=== PATIENT | female | born 1995 | race Caucasian/White ===

== ENCOUNTER 2016-08-21 20:01 | Emergency (ER) | payer OTHER ==
--- NOTE | 2016-08-21 21:43 | ED ORDER SUMMARY ---
..... Patient: BEBE HERNANDEZ OrderSheet [facility] VisitID: [id number] [place] [address] 21y, F Registration Date/Time: 08/21/2016 ORDER SHEET Weight: 64.4 kg (stated) Allergies: No Known Drug Allergy GENERAL ORDERS: CBC w Diff Urgent (20:55 08/21/2016 HBivens A.R.N.P.) (Ack 21:01 NHouse ER Tech1) (21:07 NHouse ER Tech1) BMP Urgent (20:55 08/21/2016 HBivens A.R.N.P.) (Ack 21:01 NHouse ER Tech1) (21:07 NHouse ER Tech1) MEDICATION ORDERS: Protonix PO 40 mg (Do not crush or chew, NOW) (21:17 08/21/2016 HBivens A.R.N.P.) (21:26 DDean R.N.) K-Dur PO 20 meq (Do not crush or chew, NOW) (21:37 08/21/2016 HBivens A.R.N.P.) (21:42 DDean R.N.) Augmentin PO 875 mg (NOW) (22:36 08/21/2016 DDean R.N. verbal order read back to HBivens A.R.N.P.) (22:41 DDean R.N.) IV FLUIDS: Toradol IV 30 mg (NOW) (21:50 08/21/2016 HBivens A.R.N.P.) (Ack 21:51 DDean R.N.) (22:39 DDean R.N.) IV NS : initial bolus none -, then 1000 mL/hr for X1 (NOW) (22:36 08/21/2016 DDean R.N. per protocol) (22:38 DDean R.N.) ORDER SHEET NOTES: [Electronically signed by Mary Kaur.R.N.P. (22:50 08/21/2016)] [Electronically signed by Jennifer Okeefe R.N. (23:12 08/21/2016)] [Electronically locked/signed by Jennifer Okeefe R.N. (23:12 08/21/2016)]
--- NOTE | 2016-08-21 21:43 | ED NURSING NOTES ---
Clinical Report - Nurses [facility] [address] [place] [address] 08/21/2016 20:03 Patient: BEBE HERNANDEZ TRIAGE Triage time 2014. Acuity: LEVEL 3. Chief Complaint: FEVER, COUGH, SORE THROAT and BODY ACHES. --20:26 Jennifer Okeefe R.N. 20:17 08/21/16. BP: 103/68. HR: 150. RR: 22. O2 saturation: 100%. Temp: 103.2 F (oral). Pain level now: 05/30. --20:26 Jennifer Okeefe R.N. Weight: 64.4 kg stated. Height/Length: 68 inches Per Patient. BMI: 21.6. --20:17 Jennifer Okeefe R.N. Medications OTC cough meds . --23:11 Jennifer Okeefe R.N. None. --23:11 Jennifer Okeefe R.N. chloroseptic spray for throat . --23:12 Jennifer Okeefe R.N. Allergies No Known Drug Allergy. --20:21 Jennifer Okeefe R.N. History Arrived by private vehicle. Historian: patient. Accompanied by friend. No primary care physician. Onset. (has had x 1-2 weeks, worse last 3 days). She has had chills, fatigue, a headache, abdominal pain and diarrhea. ( also having leg cramps, having cough with "off white to bloody" sputum). No vomiting. PAST MEDICAL HX: Negative. Last normal menstrual period- 2 weeks. SURGERY HX: No history of previous surgery. SOCIAL HX: Heavy tobacco smoker (cigarette)- less than 1 pack per day. Never smoker. Occasional alcohol use. History of drug use: marijuana. No infectious disease exposure. --20:26 Jennifer Okeefe R.N. PROBLEMS: no known problems. ADDITIONAL SURGERIES: no known surgeries. Interventions ID band on patient. To treatment room. --20:26 Jennifer Okeefe R.N. PHYSICAL ASSESSMENT 20:15. Ambulatory to room. Patient gowned. GENERAL / NEURO / PSYCH: Alert. Oriented X 4. Appears in pain and anxious. RESPIRATORY: Respirations not labored. Cough. CVS: Pulses within normal limits. GI / : The patient has had nausea and diarrhea. Emesis noted. SKIN: Skin is dry. Hot skin. --20:27 Jennifer Okeefe R.N. NURSING PROGRESS NOTES 20:15. Patient gowned. Head of bed elevated. Reassurance given. Patient identifiers checked. Call light placed in reach. Side rails up. Bed placed in lowest position. Patient ready for evaluation- chart flagged. --20:27 Jennifer Okeefe R.N. 20:30 08/21/2016 Site #1 started via IV in the left antecubital space with an 20g angiocath, with aseptic technique and good blood return; one attempt. Blood drawn: rainbow set. Labeled in the presence of the patient and sent to the lab. Saline lock flushed with 10 mL saline. --22:38 Jennifer Okeefe R.N. 20:30 08/21/2016 Started bag #1 1000 mL IV Fluids IV NS (Saline); at 1000 mL/hr over 1 hour(s) via site #1 via IV pump. --22:38 Jennifer Okeefe R.N. 21:21 08/21/2016 Protonix (Pantoprazole Sodium) PO Tablets 40 mg given. Allergies verified and confirmed 5 rights. --21:26 Jennifer Okeefe R.N. 21:25 08/21/2016 Toradol IVP 30 mg given over 1 minute(s) via site #1. IV patency established. IV site checked: no pain, redness, or swelling. IV flushed thoroughly pre- and post-medication administration. IVP given by RN. --22:39 Jennifer Okeefe R.N. 21:42 08/21/2016 K-DUR (Potassium Chloride Tricia ER) PO Tablets 20 meq given. Allergies verified and confirmed 5 rights. --21:42 Jennifer Okeefe R.N. 21:50 08/21/2016 Site #1 removed upon discharge. Bandaid applied. --22:40 Jennifer Okeefe R.N. 21:50 08/21/2016 IV Fluids IV NS Discontinued: bag #1 infused upon discharge. Total amount infused: 1000 mL. IV patency established. IV site checked: no pain, redness, or swelling. IV flushed thoroughly. --22:40 Jennifer Okeefe R.N. 21:52 08/21/2016 Augmentin (Amoxicillin-Pot Clavulanate) PO Tablets 875 mg given. --22:41 Jennifer Okeefe R.N. 20:30 IV started, blood drawn and sent to lab. --22:47 Jennifer Okeefe R.N. 21:15. ( Pt c/o and pain, asking for pain meds "for burning" ERPA notified, meds ordered and given). --22:49 Jennifer Okeefe R.N. 21:30. ( pt given po fluids, able to keep down.). --23:06 Jennifer Okeefe R.N. 21:15 08/21/16. BP: 110/58. HR: 114. RR: 18. O2 saturation: 98% on room air. Temp: 101.9 F. Pain level now: 03/30. --23:09 Jennifer Okeefe R.N. 21:45. ( pt given po crackers with antibiotic. deo well, denies nausea). --23:10 Jennifer Okeefe R.N. DISPOSITION / DISCHARGE 22:00. Condition at departure: improved and stable. No learning barriers present. Discharge instructions provided and reviewed with the patient and family. Reviewed medication(s) (nasalcort, augmentin, motrin). Patient and family verbalized understanding. Written instructions provided in Lithuanian. The patient was discharged home and accompanied by family. She left the Emergency Department ambulatory and via private vehicle. Family member driving. --22:44 Jennifer Okeefe R.N. 22:00 08/21/16. BP: 103/54. HR: 110. RR: 18. O2 saturation: 97%. Temp: 101.9 F. Pain level now 10. --22:44 Jennifer Okeefe R.N. Locked/Released at 08/21/2016 23:12 by Jennifer Okeefe R.N.
--- NOTE | 2016-08-21 21:43 | ED CLINICAL REPORT ---
Clinical Report - Physicians/Mid Levels [facility] [address] [place] [address] 08/21/2016 20:03 Patient: BEBE HERNANDEZ Time Seen: 2044; initial patient contact, initial documentation, patient care assumed. Arrived- By private vehicle. Historian- patient. HISTORY OF PRESENT ILLNESS Chief Complaint: COUGH, SORE THROAT, SINUS PAIN, FEVER, CHILLS, MUSCLE ACHES and "FLU". This started about 1 weeks ago and is still present. The illness is described as moderate. The patient has had thin, white sputum, a cough, a sore throat, nasal congestion and sinus pressure. She has had sinus drainage, fever, chills, muscle aches and a nasal discharge. No difficulty breathing. Additional history - No known contact with a sick individual. No recent travel. Similar symptoms previously: None. Recent medical care: Not recently seen/assessed. REVIEW OF SYSTEMS The patient has had a mild, pressure-like frontal and facial headache. No nausea or vomiting. She has had diarrhea (had diarrhea about a week ago, none today or yesterday). Denies current . All systems otherwise negative, except as recorded above. PAST HISTORY Negative. SOCIAL HISTORY Heavy tobacco smoker. Occasional alcohol use. History of occasional drug use: marijuana. Not exposed to second-hand smoke at home. No recent travel. Is a local resident. FAMILY HISTORY Negative. ADDITIONAL NOTES The nursing notes have been reviewed with agreement regarding the chief complaint, HPI, ROS, PMH and patient medications and allergies. PHYSICAL EXAM Vital Signs: 08/21/2016 20:17 BP: 103/68. HR: 150. RR: 22. O2 saturation: 100%. Temp: 103.2 F. Pain level now: 1010. Have been reviewed as abnormal and appear to be correct. Blood pressure normal. Tachycardic. Respiratory rate normal. Febrile. Oxygen saturation normal. Appearance: Alert. No acute distress. Head: Tenderness present to percussion/palpation of the sinuses: moderate right and left frontal tenderness, maxillary tenderness, ethmoid tenderness. Eyes: Pupils equal, round and reactive to light. Eyes normal inspection. ENT: Ears normal. Nose abnormal. Pharynx normal. Uvula midline. Neck: Normal inspection. Neck supple. CVS: Normal heart rate and rhythm. Heart sounds normal. Pulses normal. Respiratory: No respiratory distress. Breath sounds normal. Abdomen: Soft and nontender. No organomegaly. Back: Normal inspection. Skin: Skin warm and dry. Normal skin color. No rash. Normal skin turgor. Extremities: Extremities exhibit normal ROM. No lower extremity edema. Neuro: Oriented X 3. No motor deficit. No sensory deficit. LABS, X-RAYS, AND EKG Laboratory Tests: CBC w Diff: (GERSON: 08/21/2016 20:35) ( MsgRcvd 08/21/2016 21:32) Final results Test Result Flag Units (Reference) WHITE BLOOD COUNT 8.0 K/uL (4.5-11.5) RED BLOOD COUNT 4.73 M/uL (4.00-5.20) HEMOGLOBIN 12.3 gm/dL (12.0-16.0) HEMATOCRIT 37.7 % (36.0-46.0) MEAN CELL VOLUME 80 fL (80-100) MEAN CORPUSCULAR HGB 26 pg (26-34) MEAN CORPUSCULAR HGB CONC 33 g/dL (31-37) RED CELL DISTRIBUTION WIDTH 13.8 % (11.6-14.8) PLATELET COUNT 180 K/uL (150-400) NEUTROPHIL % 68.9 % (50-75) LYMPH % 17.7 L % (25-40) MONO % 13.1 % (3-14) EOSINOPHIL % 0 % (0-4) BASOPHIL % 0.3 % (0-2) BMP: (GERSON: 08/21/2016 20:35) ( MsgRcvd 08/21/2016 21:34) Final results Test Result Flag Units (Reference) GLUCOSE 98 mg/dL (70-110) BUN 10 mg/dL (7-18) CREATININE 0.8 mg/dL (0.6-1.3) Estimated GFR >60 mL/min Estimated GFR- >60 mL/min Note: Persistent reduction over 3 months in eGFR<60 mL/min/1.73 m2 defines CKD. Patients with eGFR values>=60 mL/min/1.73 m2 may also have CKD if evidence ofpersistent proteinuria. Additional information may be foundat www.kidney.org. SODIUM 139 mmol/L (136-145) POTASSIUM 3.2 L mmol/L (3.5-5.1) CHLORIDE 100 mmol/L (98-107) CARBON DIOXIDE 25 mmol/L (21-32) CALCIUM 8.5 mg/dL (8.5-10.1) . PROGRESS AND PROCEDURES Course of Care: nurse starting iv and blood work prior to me seeing pt. Patient counseled in person regarding the patient's stable condition, test results and diagnosis. 21:37. Differential Diagnosis: Other possible considerations: flu, sinusitis, uri, bronchitis, pneumonia, viral illness. Above considerations are based on history, physical exam and laboratory data. Differential diagnosis was discussed with patient. Disposition: Discharged home in good and improved condition (21:43). Condition: good and stable. CLINICAL IMPRESSION Acute maxillary, ethmoidal and frontal sinusitis INSTRUCTIONS Alternate Tylenol (Acetaminophen) and Motrin (Ibuprofen) for fever, temperature greater than 101 degrees orally. Take according to label instructions. Do not work for two days. Drink plenty of fluids for the next 24 hours until better. Warnings: GENERAL WARNINGS: Return or contact your physician immediately if your condition worsens or changes unexpectedly, if not improving as expected, or if other problems arise. Specifically return if problem worsens. Prescription Medications: Nasacort nasal spray: 2 sprays in each nostril once daily as needed for allergies. Dispense one (1) unit. No refills. Substitution is permissible. Augmentin 875 mg: take 1 tablet orally every 12 hours for 10 days. No refill. Motrin 600 mg tablets: take 1 tablet orally every 6 hours as needed for pain or fever. Dispense thirty (30). No refill. Follow-up: Follow up with your doctor in about three days even if well. Call for an appointment. Summary of care provided to patient. Understanding of the discharge instructions verbalized by patient. (Electronically signed by Mary Kaur A.R.N.P. 08/21/2016 22:50)
--- NOTE | 2016-08-21 21:43 | ED ORDER SUMMARY ---
..... Patient: BEBE HERNANDEZ OrderSheet [facility] VisitID: [id number] [place] [address] 21y, F Registration Date/Time: 08/21/2016 ORDER SHEET Weight: 64.4 kg (stated) Allergies: No Known Drug Allergy GENERAL ORDERS: CBC w Diff Urgent (20:55 08/21/2016 HBivens A.R.N.P.) (Ack 21:01 NHouse ER Tech1) (21:07 NHouse ER Tech1) BMP Urgent (20:55 08/21/2016 HBivens A.R.N.P.) (Ack 21:01 NHouse ER Tech1) (21:07 NHouse ER Tech1) MEDICATION ORDERS: Protonix PO 40 mg (Do not crush or chew, NOW) (21:17 08/21/2016 HBivens A.R.N.P.) (21:26 DDean R.N.) K-Dur PO 20 meq (Do not crush or chew, NOW) (21:37 08/21/2016 HBivens A.R.N.P.) (21:42 DDean R.N.) Augmentin PO 875 mg (NOW) (22:36 08/21/2016 DDean R.N. verbal order read back to HBivens A.R.N.P.) (22:41 DDean R.N.) IV FLUIDS: Toradol IV 30 mg (NOW) (21:50 08/21/2016 HBivens A.R.N.P.) (Ack 21:51 DDean R.N.) (22:39 DDean R.N.) IV NS : initial bolus none -, then 1000 mL/hr for X1 (NOW) (22:36 08/21/2016 DDean R.N. per protocol) (22:38 DDean R.N.) ORDER SHEET NOTES: [Electronically signed by Mary Kaur.R.N.P. (22:50 08/21/2016)] [Electronically signed by Jennifer Okeefe R.N. (23:12 08/21/2016)] [Electronically locked/signed by Jennifer Okeefe R.N. (23:12 08/21/2016)]
--- NOTE | 2016-08-21 23:12 | ED MAR SUMMARY ---
..... Medication Administration Record [facility] [address] [place] [address] Patient: BEBE HERNANDEZ Visit ID: [id number] 21y, F Weight: 64.4 kg Height/Length: 68 in BMI: 21.6 ALLERGIES: No Known Drug Allergy Start 20:30 08/21/2016 Jennifer Okeefe R.N., Stop 21:50 08/21/2016 Jennifer Okeefe R.N. Medication Administered: IV NS (SALINE), Dose: IV Fluids over 1 hour(s), Rate: 1000 mL/hr, Dispensed: 1000 mL bag, Site: #1 left AC. Medication Ordered: IV NS : initial bolus none -, then 1000 mL/hr for X1 (NOW). Given 21:21 08/21/2016 Jennifer Okeefe R.N. Medication Administered: PROTONIX [PO] (PANTOPRAZOLE SODIUM), Dose: 40 mg Tablets PO. Medication Ordered: Protonix PO 40 mg (Do not crush or chew, NOW). Given 21:25 08/21/2016 Jennifer Okeefe R.N. Medication Administered: TORADOL [IVP], Dose: 30 mg IVP over 1 minute(s), Site: #1 left AC. Medication Ordered: Toradol IV 30 mg (NOW). Given 21:42 08/21/2016 Jennifer Okeefe R.N. Medication Administered: K-DUR [PO] (POTASSIUM CHLORIDE JAMES ER), Dose: 20 meq Tablets PO. Medication Ordered: K-Dur PO 20 meq (Do not crush or chew, NOW). Given 21:52 08/21/2016 Jennifer Okeefe R.N. Medication Administered: AUGMENTIN [PO] (AMOXICILLIN-POT CLAVULANATE), Dose: 875 mg Tablets PO. Medication Ordered: Augmentin PO 875 mg (NOW).
--- NOTE | 2016-08-21 23:12 | ED MED RECONCILIATION SUMMARY ---
Patient: BEBE HERNANDEZ Medication Reconciliation Report [facility] VisitID: [id number] [place] [address] 21y, F Registration Date/Time: 08/21/2016 Weight: 64.4 kg Height/Length: 68 in. BMI: 21.6 ALLERGIES: No Known Drug Allergy The patient's Home Medications are listed below: THE FOLLOWING MEDICATIONS NEED TO BE RECONCILED: chloroseptic spray for throat OTC cough meds The source(s) of the original Home Medication information: Not obtained. The following Medications were given to the patient in the Emergency Department: Protonix [PO] PO 40 mg, administered: 08/21/2016 9:21:00 PM K-DUR [PO] PO 20 meq, administered: 08/21/2016 9:42:00 PM IV NS IV Fluids bolus 0, then 1000 mL/hr, administered: 08/21/2016 8:30:00 PM Toradol [IVP] IVP 30 mg, administered: 08/21/2016 9:25:00 PM Augmentin [PO] PO 875 mg, administered: 08/21/2016 9:52:00 PM The following Medications were prescribed to the patient: Nasacort nasal spray: 2 sprays in each nostril once daily as needed for allergies. Dispense one (1) unit. No refills. Substitution is permissible. -- Mary Kaur, A.R.N.P. Augmentin 875 mg: take 1 tablet orally every 12 hours for 10 days. No refill. -- Mary Kaur A.R.N.P. Motrin 600 mg tablets: take 1 tablet orally every 6 hours as needed for pain or fever. Dispense thirty (30). No refill. -- Mary Kaur A.R.N.P.
--- NOTE | 2016-08-21 23:12 | ED DISCHARGE INSTRUCTIONS ---
Patient: BEBE HERNANDEZ General Instructions [facility] VisitID: [id number] [place] [address] 21y, F Registration Date/Time: 08/21/2016 Acute maxillary, ethmoidal and frontal sinusitis INSTRUCTIONS Alternate Tylenol (Acetaminophen) and Motrin (Ibuprofen) for fever, temperature greater than 101 degrees orally. Take according to label instructions. Do not work for two days. Drink plenty of fluids for the next 24 hours until better. Warnings: GENERAL WARNINGS: Return or contact your physician immediately if your condition worsens or changes unexpectedly, if not improving as expected, or if other problems arise. Specifically return if problem worsens. Prescription Medications: Nasacort nasal spray: 2 sprays in each nostril once daily as needed for allergies. Dispense one (1) unit. No refills. Substitution is permissible. Augmentin 875 mg: take 1 tablet orally every 12 hours for 10 days. No refill. Motrin 600 mg tablets: take 1 tablet orally every 6 hours as needed for pain or fever. Dispense thirty (30). No refill. Follow-up: Follow up with your doctor in about three days even if well. Call for an appointment. Summary of care provided to patient. Understanding of the discharge instructions verbalized by patient. ADDITIONAL INFORMATION Sinusitis [Abx Tx] The sinuses are air-filled spaces within the bones of the face. They connect to the inside of the nose. Sinusitis is an inflammation of the tissue lining the sinus cavity. Sinus inflammation can occur during a cold or hay-fever (allergies to pollens and other particles in the air) and cause symptoms of sinus congestion and fullness. A sinus infection causes fever, headache and facial pain. There is usually green or yellow drainage from the nose or into the back of the throat (post-nasal drip). Antibiotics are prescribed to treat this condition. Home Care: Drink plenty of water, hot tea, and other liquids to stay well hydrated. This thins the mucus and promotes sinus drainage. Apply heat to the painful areas of the face. Use a towel soaked in hot water. Or, wage and salary administrator the shower and direct the hot spray onto your face. This is a good way to inhale warm water vapor and get heat on your face at the same time. (Cover your mouth and nose with your hands so you can still breathe as you do this.) Use a vaporizer with products such as Vicks VapoRub (contains menthol) at night. Suck on peppermint, menthol or eucalyptus hard candies during the day. An expectorant containing guaifenesin (such as Robitussin), helps to thin the mucus and promote drainage from the sinuses. Ymcx-yoo-jlyekkw decongestants may be used unless a similar medicine was prescribed. Nasal sprays work the fastest. Use one that contains phenylephrine (Pranay-synephrine, Sinex and others) or oxymetazoline (Afrin). First blow the nose gently to remove mucus, then apply the drops. Do not use these medicines more often than directed on the label or for more than three days or symptoms may worsen. You may also use tablets containing pseudoephedrine (Sudafed). Many sinus remedies combine ingredients, which may increase side effects. Read the labels or ask the pharmacist for help. NOTE: Persons with high blood pressure should not use decongestants. They can raise blood pressure. Antihistamines are useful if allergies are a cause of your sinusitis. The mildest one is chlorpheniramine (available without a prescription). The dose for adults is 8-12mg three times a day. [NOTE: Do not use chlorpheniramine if you have glaucoma or if you are a man with trouble urinating due to an enlarged prostate.] Claritin (loratidine) is an antihistamine that causes less drowsiness and is a good alternative for daytime use. Do not use nasal rinses or irrigation during an acute sinus infection, unless advised by your doctor. Rinsing may spread the infection to other sinuses. You may use acetaminophen (Tylenol) or ibuprofen (Motrin, Advil) to control pain, unless another pain medicine was prescribed. [ NOTE: If you have chronic liver or kidney disease or ever had a stomach ulcer, talk with your doctor before using these medicines.] (Aspirin should never be used in anyone under 18 years of age who is ill with a fever. It may cause severe liver damage.) Finish the full course, even if you are feeling better after a few days. Follow Up with your doctor or this facility in one week or as instructed by our staff if not improving. Get Prompt Medical Attention if any of the following occur: Facial pain or headache becomes more severe Stiff neck Unusual drowsiness or confusion, or not acting like your normal self Swelling of the forehead or eyelids Vision problems including blurred or double vision Fever of 100.4F (38C) or higher, or as directed by your healthcare provider Seizure Fever Control (Adult) A fever is a natural reaction of the body to an illness. In most cases, the temperature itself is not harmful. It actually helps the body fight infections. A fever does not need to be treated unless you feel very uncomfortable. Home Care If you feel warm, check your temperature. If you feel very uncomfortable and your temperature is at or higher than 100.4F (38C) oral, you may take acetaminophen (Tylenol) every 4 to 6 hours. If you cant take or keep down oral medicine, ask your pharmacist for Tylenol suppositories, which you can get without a prescription. If the fever does not respond to acetaminophen within 1 hour, take ibuprofen (Advil or Motrin). If this works, keep taking the ibuprofen every 6 to 8 hours. Note: If you have chronic liver or kidney disease or ever had a stomach ulcer or GI bleeding, talk with your doctor before using these medications. If either medication alone does not keep the fever down, you may alternate the two medicines every 3 to 4 hours, only if your healthcare provider has instructed you to do so. For example, take Motrin then wait 3 hours, take Tylenol then wait 3 hours, take Motrin, and so on. Follow your healthcare providers instructions exactly. Clothing: Keep clothing light because excess body heat is lost through the skin. The fever will go up if you wear extra layers or wrap in blankets. Fluids: Fever causes the body to lose water through evaporation. Drink plenty of fluids such as water, juice, clear sodas, jany shahid, or lemonade. Do not use aspirin in anyone under 18 years of age who is ill with a fever. It can cause severe liver damage. Follow Up with your doctor or as advised by our staff if you do not get better after 48 hours. Get Prompt Medical Attention if any of the following occur: Fever does not get better after taking fever medication Fast or difficult breathing Earache, sinus pain, stiff or painful neck, headache, repeated diarrhea or vomiting You feel unusually irritable, drowsy, or confused A rash appears You feel weak or dizzy, or that you might faint Triamcinolone Acetonide Nasal spray What is this medicine? TRIAMCINOLONE (trye am SIN oh lone) nasal spray is a corticosteroid. It is used to treat the nasal symptoms of seasonal and year round allergies. How should I use this medicine? This medicine is for use in the nose. Follow the directions on your prescription label. This medicine works best if used regularly. Do not use more often than directed. Make sure that you are using your nasal spray correctly. Ask you doctor or health care provider if you have any questions. Talk to your solid propellant processor regarding the use of this medicine in children. While this drug may be prescribed for children as young as 2 years of age for selected conditions, precautions do apply. What side effects may I notice from receiving this medicine? Side effects that you should report to your doctor or health animal care technician as soon as possible: allergic reactions like skin rash, itching or hives, swelling of the face, lips, or tongue change in vision dizziness infection nosebleed, burning in the nose trouble breathing, wheezing unusual bruising white patches or sores in the nose Side effects that usually do not require medical attention (report to your doctor or health animal care technician if they continue or are bothersome): congestion cough headache nausea runny nose sneezing What may interact with this medicine? Interactions are not expected. What if I miss a dose? If you miss a dose, take it as soon as you can. If it is almost time for your next dose, take only that dose. Do not take double or extra doses. Where should I keep my medicine? Keep out of the reach of children. Store at room temperature between 20 and 25 degrees C (68 and 77 degrees F). Throw away the canister after 120 sprays or after the expiration date, whichever comes first. What should I tell my health care provider before I take this medicine? They need to know if you have any of these conditions: infection, like tuberculosis, herpes, or fungal infection recent surgery or injury of nose or sinuses taking corticosteroids by mouth an unusual or allergic reaction to triamcinolone, corticosteroids, other medicines, foods, dyes, or preservatives or trying to get breast-feeding What should I watch for while using this medicine? Check with your doctor or health animal care technician if your symptoms do not improve in 1 week of regular use or if they get worse. Do not come in contact with people who have chickenpox or the measles while you are taking this medicine. If you do, call your doctor right away. Amoxicillin Trihydrate, Clavulanate Potassium Oral tablet What is this medicine? AMOXICILLIN; CLAVULANIC ACID (a mox i JUANCALROS in; SANTOQUIQUE oneyda amauri ic id) is a penicillin antibiotic. It is used to treat certain kinds of bacterial infections. It will not work for colds, flu, or other viral infections. How should I use this medicine? Take this medicine by mouth with a full glass of water. Follow the directions on the prescription label. Take at the start of a meal. Do not crush or chew. If the tablet has a score line, you may cut it in half at the score line for easier swallowing. Take your medicine at regular intervals. Do not take your medicine more often than directed. Take all of your medicine as directed even if you think you are better. Do not skip doses or stop your medicine early. Talk to your solid propellant processor regarding the use of this medicine in children. Special care may be needed. What side effects may I notice from receiving this medicine? Side effects that you should report to your doctor or health animal care technician as soon as possible: allergic reactions like skin rash, itching or hives, swelling of the face, lips, or tongue breathing problems dark urine fever or chills, sore throat redness, blistering, peeling or loosening of the skin, including inside the mouth seizures trouble passing urine or change in the amount of urine unusual bleeding, bruising unusually weak or tired white patches or sores in the mouth or throat Side effects that usually do not require medical attention (report to your doctor or health animal care technician if they continue or are bothersome): diarrhea dizziness headache nausea, vomiting stomach upset vaginal or anal irritation What may interact with this medicine? allopurinol anticoagulants control pills methotrexate probenecid What if I miss a dose? If you miss a dose, take it as soon as you can. If it is almost time for your next dose, take only that dose. Do not take double or extra doses. Where should I keep my medicine? Keep out of the reach of children. Store at room temperature below 25 degrees C (77 degrees F). Keep container tightly closed. Throw away any unused medicine after the expiration date. What should I tell my health care provider before I take this medicine? They need to know if you have any of these conditions: bowel disease, like colitis kidney disease liver disease mononucleosis an unusual or allergic reaction to amoxicillin, penicillin, cephalosporin, other antibiotics, clavulanic acid, other medicines, foods, dyes, or preservatives or trying to get breast-feeding What should I watch for while using this medicine? Tell your doctor or health animal care technician if your symptoms do not improve. Do not treat diarrhea with over the counter products. Contact your doctor if you have diarrhea that lasts more than 2 days or if it is severe and watery. If you have diabetes, you may get a false-positive result for sugar in your urine. Check with your doctor or health animal care technician. control pills may not work properly while you are taking this medicine. Talk to your doctor about using an extra method of control. Ibuprofen Oral tablet What is this medicine? IBUPROFEN (eye BYOO proe fen) is a non-steroidal anti-inflammatory drug (NSAID). It is used for dental pain, fever, headaches or migraines, osteoarthritis, rheumatoid arthritis, or painful monthly periods. It can also relieve minor aches and pains caused by a cold, flu, or sore throat. How should I use this medicine? Take this medicine by mouth with a glass of water. Follow the directions on the prescription label. Take this medicine with food if your stomach gets upset. Try to not lie down for at least 10 minutes after you take the medicine. Take your medicine at regular intervals. Do not take your medicine more often than directed. A special MedGuide will be given to you by the pharmacist with each prescription and refill. Be sure to read this information carefully each time. Talk to your solid propellant processor regarding the use of this medicine in children. Special care may be needed. What side effects may I notice from receiving this medicine? Side effects that you should report to your doctor or health animal care technician as soon as possible: allergic reactions like skin rash, itching or hives, swelling of the face, lips, or tongue black or bloody stools, blood in the urine or in vomit breathing problems changes in vision chest pain general ill feeling or flu-like symptoms nausea or vomiting redness, blistering, peeling or loosening of the skin, including inside the mouth slurred speech or weakness on one side of the body stomach pain unexplained weight gain or swelling unusually weak or tired yellowing of eyes or skin Side effects that usually do not require medical attention (report to your doctor or health animal care technician if they continue or are bothersome): constipation or diarrhea dizziness gas or heartburn stomach upset What may interact with this medicine? Do not take this medicine with any of the following medications: cidofovir ketorolac methotrexate pemetrexed This medicine may also interact with the following medications: alcohol aspirin diuretics lithium other drugs for inflammation like prednisone warfarin What if I miss a dose? If you miss a dose, take it as soon as you can. If it is almost time for your next dose, take only that dose. Do not take double or extra doses. Where should I keep my medicine? Keep out of the reach of children. Store at room temperature between 15 and 30 degrees C (59 and 86 degrees F). Keep container tightly closed. Throw away any unused medicine after the expiration date. What should I tell my health care provider before I take this medicine? They need to know if you have any of these conditions: asthma cigarette smoker drink more than 3 alcohol containing drinks a day heart disease or circulation problems such as heart failure or leg edema (fluid retention) high blood pressure kidney disease liver disease stomach bleeding or ulcers an unusual or allergic reaction to ibuprofen, aspirin, other NSAIDS, other medicines, foods, dyes, or preservatives or trying to get breast-feeding What should I watch for while using this medicine? Tell your doctor or healthcare professional if your symptoms do not start to get better or if they get worse. This medicine does not prevent heart attack or stroke. In fact, this medicine may increase the chance of a heart attack or stroke. The chance may increase with longer use of this medicine and in people who have heart disease. If you take aspirin to prevent heart attack or stroke, talk with your doctor or health animal care technician. Do not take other medicines that contain aspirin, ibuprofen, or naproxen with this medicine. Side effects such as stomach upset, nausea, or ulcers may be more likely to occur. Many medicines available without a prescription should not be taken with this medicine. This medicine can cause ulcers and bleeding in the stomach and intestines at any time during treatment. Ulcers and bleeding can happen without warning symptoms and can cause . To reduce your risk, do not smoke cigarettes or drink alcohol while you are taking this medicine. You may get drowsy or dizzy. Do not drive, use machinery, or do anything that needs mental alertness until you know how this medicine affects you. Do not stand or sit up quickly, especially if you are an older patient. This reduces the risk of dizzy or fainting spells. This medicine can cause you to bleed more easily. Try to avoid damage to your teeth and gums when you brush or floss your teeth. You have been given the following additional information: Sinusitis, Abx Tx Fever Control (Adult) Triamcinolone Acetonide Nasal spray Amoxicillin Trihydrate, Clavulanate Potassium Oral tablet Ibuprofen Oral tablet Do not work for two days. (Electronically signed by Mary Kaur A.R.N.P. 08/21/2016 22:50)
--- NOTE | 2016-08-21 23:12 | ED MED RECONCILIATION SUMMARY ---
Patient: BEBE HERNANDEZ Medication Reconciliation Report [facility] VisitID: [id number] [place] [address] 21y, F Registration Date/Time: 08/21/2016 Weight: 64.4 kg Height/Length: 68 in. BMI: 21.6 ALLERGIES: No Known Drug Allergy The patient's Home Medications are listed below: THE FOLLOWING MEDICATIONS NEED TO BE RECONCILED: chloroseptic spray for throat OTC cough meds The source(s) of the original Home Medication information: Not obtained. The following Medications were given to the patient in the Emergency Department: Protonix [PO] PO 40 mg, administered: 08/21/2016 9:21:00 PM K-DUR [PO] PO 20 meq, administered: 08/21/2016 9:42:00 PM IV NS IV Fluids bolus 0, then 1000 mL/hr, administered: 08/21/2016 8:30:00 PM Toradol [IVP] IVP 30 mg, administered: 08/21/2016 9:25:00 PM Augmentin [PO] PO 875 mg, administered: 08/21/2016 9:52:00 PM The following Medications were prescribed to the patient: Nasacort nasal spray: 2 sprays in each nostril once daily as needed for allergies. Dispense one (1) unit. No refills. Substitution is permissible. -- Mary Kaur, A.R.N.P. Augmentin 875 mg: take 1 tablet orally every 12 hours for 10 days. No refill. -- Mary Kaur A.R.N.P. Motrin 600 mg tablets: take 1 tablet orally every 6 hours as needed for pain or fever. Dispense thirty (30). No refill. -- Mary Kaur A.R.N.P.
--- NOTE | 2016-08-21 23:12 | ED MAR SUMMARY ---
..... Medication Administration Record [facility] [address] [place] [address] Patient: BEBE HERNANDEZ Visit ID: [id number] 21y, F Weight: 64.4 kg Height/Length: 68 in BMI: 21.6 ALLERGIES: No Known Drug Allergy Start 20:30 08/21/2016 Jennifer Okeefe R.N., Stop 21:50 08/21/2016 Jennifer Okeefe R.N. Medication Administered: IV NS (SALINE), Dose: IV Fluids over 1 hour(s), Rate: 1000 mL/hr, Dispensed: 1000 mL bag, Site: #1 left AC. Medication Ordered: IV NS : initial bolus none -, then 1000 mL/hr for X1 (NOW). Given 21:21 08/21/2016 Jennifer Okeefe R.N. Medication Administered: PROTONIX [PO] (PANTOPRAZOLE SODIUM), Dose: 40 mg Tablets PO. Medication Ordered: Protonix PO 40 mg (Do not crush or chew, NOW). Given 21:25 08/21/2016 Jennifer Okeefe R.N. Medication Administered: TORADOL [IVP], Dose: 30 mg IVP over 1 minute(s), Site: #1 left AC. Medication Ordered: Toradol IV 30 mg (NOW). Given 21:42 08/21/2016 Jennifer Okeefe R.N. Medication Administered: K-DUR [PO] (POTASSIUM CHLORIDE JAMES ER), Dose: 20 meq Tablets PO. Medication Ordered: K-Dur PO 20 meq (Do not crush or chew, NOW). Given 21:52 08/21/2016 Jennifer Okeefe R.N. Medication Administered: AUGMENTIN [PO] (AMOXICILLIN-POT CLAVULANATE), Dose: 875 mg Tablets PO. Medication Ordered: Augmentin PO 875 mg (NOW).
== END 2016-08-21 22:00 | disposition home or self-care (01) ==
LOC: ED SRH 20:01
DX: J01.20 Acute ethmoidal sinusitis, unspecified (principal); J01.10 Acute frontal sinusitis, unspecified; J01.00 Acute maxillary sinusitis, unspecified; F17.210 Nicotine dependence, cigarettes, uncomplicated
CPT/HCPCS: 90047; 95059